=== PATIENT | female | born 1960 | race Caucasian/White ===

== ENCOUNTER → 2017-03-03 | Outpatient (REF) | payer OTHER | LOC: M SFHCPLAZ 11:35 | PROVIDERS: ATTEND Nurse Practitioner Adult Health | DX: Z00.00 Encounter for general adult medical examination without abnormal findings (principal); E55.9 Vitamin D deficiency, unspecified; Z53.9 Procedure and treatment not carried out, unspecified reason ==

== ENCOUNTER 2017-07-15 09:27 | Outpatient (CLI) | payer BC, OTHER ==
[~2017-07-15] VITALS: Ht 152.4 cm; Wt 65.8 kg
[~2017-07-15 09:27] MED LIST: HYDR200T3 PO; IBUP-1022 PO; PREM0.3T2 PO; VITA100054 PO; VITA500T PO
[2017-07-15] MEDS ORDERED: NS 1,000 ML IV SCH (09:45)
[2017-07-15] MEDS ORDERED: LIDOCAINE 2% INJ 100 MG/5 ML SDV (FOR ANES.) As Ordered ONE (10:28)
[2017-07-15] MEDS ORDERED: PROPOFOL 200 MG/20 ML VIAL As Ordered ONE ×2 (10:28→10:43)
--- NOTE | 2017-07-15 10:49 | ROOR ---
Patient Name: Jens Benedict Procedure Date: 07/15/2017 10:24 AM Date of : 1960 Age: 57 Room: [facility] Gender: Female Note Status: Finalized Procedure: Total Colonoscopy to cecum + Biopsy Polypectomy Indications: Screening for colorectal malignant neoplasm, Last colonoscopy: 2006 Providers: Micky Russell MD Referring MD: Nathan Herron MD Requesting Provider: Medicines: Monitored Anesthesia Care Complications: No immediate complications. Procedure: Pre-Anesthesia Assessment: - The heart rate, respiratory rate, oxygen saturations, blood pressure, adequacy of pulmonary ventilation, and response to care were monitored throughout the procedure. The Colonoscope was introduced through the anus and advanced to the cecum, identified by appendiceal orifice and ileocecal valve. The colonoscopy was performed without difficulty. The patient tolerated the procedure well. The quality of the bowel preparation was excellent. Findings: The perianal and digital rectal examinations were normal. Non-bleeding internal hemorrhoids were found during retroflexion. The hemorrhoids were small and Grade I (internal hemorrhoids that do not prolapse). A diminutive polyp was found at 25 cm proximal to the anus. The polyp was sessile. The polyp was removed with a jumbo cold forceps. Resection and retrieval were complete. The exam was otherwise without abnormality on direct and retroflexion views. Impression: - Non-bleeding internal hemorrhoids. - One diminutive polyp at 25 cm proximal to the anus, removed with a jumbo cold forceps. Resected and retrieved. - The examination was otherwise normal on direct and retroflexion views. - The exam was otherwise normal to the cecum. Recommendation: - Patient has a contact number available for emergencies. The signs and symptoms of potential delayed complications were discussed with the patient. Return to normal activities tomorrow. Written discharge instructions were provided to the patient. - High fiber diet. - Discharge patient to home. - Continue present medications. - Await pathology results. - Telephone GI clinic for pathology results in 1 week. - Repeat colonoscopy in 10 years for surveillance based on pathology results. - Return to referring physician. - The findings and recommendations were discussed with the patient's family. Micky Russell MD Micky Russell MD 07/15/2017 10:49:39 AM This report has been signed electronically. Number of Addenda: 0 Note Initiated On: 07/15/2017 10:24 AM Estimated Blood Loss: Estimated blood loss: none.
[2017-07-15 11:05] VITALS: BP 141/68
== END 2017-07-15 11:19 | disposition home or self-care (01) ==
LOC: M OPP 09:27
PROVIDERS: ATTEND Internal Medicine Gastroenterology
DX: Z12.11 Encounter for screening for malignant neoplasm of colon (principal); D12.5 Benign neoplasm of sigmoid colon; K64.0 First degree hemorrhoids; M19.90 Unspecified osteoarthritis, unspecified site; G43.909 Migraine, unspecified, not intractable, without status migrainosus; Z78.0 Asymptomatic menopausal state; Z88.1 Allergy status to other antibiotic agents; Z88.0 Allergy status to penicillin; Z79.899 Other long term (current) drug therapy; Z80.49 Family history of malignant neoplasm of other genital organs

== ENCOUNTER → 2019-04-19 | Outpatient (REF) | payer OTHER ==
[2019-04-19 16:22] LABS: ALBUMIN 4.1 GM/DL (3.2-5.2); BILIRUBIN,TOTAL 0.7 MG/DL (0.2-1.0); CALCIUM LEVEL 10.1 MG/DL (8.8-10.2); CHOLESTEROL RISK RATIO 3.25 (<5); CREATININE FOR GFR 1.34 MG/DL (0.55-1.30); GLOMERULAR FILTRATION RATE 42.8 (>45); MAGNESIUM LEVEL 2.3 MG/DL (1.8-2.4); POTASSIUM SERUM 4.5 MEQ/L (3.5-5.1); TOTAL PROTEIN 7.2 GM/DL (6.4-8.2)
== END ==
LOC: M SFHCPLAZ 14:29
PROVIDERS: ATTEND Internal Medicine
DX: I10 Essential (primary) hypertension (principal); E78.00 Pure hypercholesterolemia, unspecified

== ENCOUNTER → 2019-05-17 | Outpatient (CLI) | payer BC, OTHER ==
--- NOTE | 2019-05-17 15:49 | REPMRS ---
Patient History The patient states she has not had a clinical breast exam in over a year. Patient is postmenopausal and is nulliparous. Family history of unknown cancer at age 70 in father, unknown cancer at age 30 in maternal aunt, unknown cancer at age 70 in paternal aunt. Benign stereotactic core biopsy of the right breast, December 25, 2015. Benign core biopsy of both breasts. Took hormonal contraceptives for 6 years. Took unspecified hormones for 2 years. 3D TOMOSYNTHESIS WAS PERFORMED. [facility] lifetime risk for breast cancer is 11.1%. Digital Woman Screen Mammo: May 17, 2019 - Exam #: [id number] Bilateral CC and MLO view(s) were taken. Technologist: Filomena Loredo, Technologist Prior study comparison: March 17, 2018, bilateral digital mammo screening bilat, performed at [facility]. May 28, 2016, right breast digital mammo diagnostic unilateral, performed at [facility]. FINDINGS: The breast tissue is heterogeneously dense. This may lower the sensitivity of mammography. There has been no change in the appearance of the mammogram from the prior studies. There is a moderate amount of residual fibroglandular tissue which is fairly symmetric. There is no interval development of dominant mass, areas of architectural distortion, or clustered microcalcification typical of malignancy. Assessment: BI-RADS/ACR category 1 mammogram. Negative Mammogram. Recommendation Routine screening mammogram in 1 year (for women over age 40). This mammogram was interpreted with the aid of an FDA-approved computer-aided dectection system. Electronically Signed By: Ac Fraga MD 05/17/19 3024
--- NOTE | 2019-05-19 14:21 | DEXA ---
AP SPINE L1 - L4 1.239 0.4 1.7 LT FEMUR TOTAL 0.981 -0.2 0.8 LT NECK 0.981 -0.2 0.8 RT FEMUR TOTAL 0.897 -1.0 0.3 RT NECK Right hip replacement. TOTAL BODY TOTAL OTHER COMMENTS: Normal bone densitometry of the spine. There is low bone density of the left hip. The density of the spine has increased 3.2% since 08/14/2010. The density of the left hip has decreased 3.3% since 08/14/2010. The density of the right hip is N/A. The increased density of the spine does represent a significant change. The decreased density of the left hip does represent a significant change. FOLLOW-UP: Recommendation for the next bone density exam: 2 years. MARIA ESTHER
== END ==
LOC: M WHC 12:56
PROVIDERS: ATTEND Nurse Practitioner Women's Health
DX: Z12.31 Encounter for screening mammogram for malignant neoplasm of breast (principal); N95.1 Menopausal and female climacteric states; Z80.9 Family history of malignant neoplasm, unspecified; Z92.0 Personal history of contraception; Z92.23 Personal history of estrogen therapy

== ENCOUNTER 2019-05-29 10:44 | Emergency (ER) | payer BC, OTHER ==
[~2019-05-29] VITALS: Ht 152.4 cm; Wt 75.8 kg
[2019-05-29] MEDS ORDERED: ASPI81TA85 PO (10:57)
[2019-05-29] MEDS ORDERED: CELE20TA PO (10:57)
[2019-05-29] MEDS ORDERED: LISI10TA15 PO (10:57)
[2019-05-29] MEDS ORDERED: SULF500T2 PO (10:57)
[2019-05-29] MEDS ORDERED: RA T500C2 PO (10:57)
[2019-05-29] MEDS ORDERED: OMEGCAP9 PO (10:57)
[2019-05-29] MEDS ORDERED: NS 1,000 ML IV ONE (11:45)
[2019-05-29] MEDS ORDERED: ONDANSETRON 4MG/2ML VIAL (J2405) IV ONE (11:45)
[2019-05-29] MEDS ORDERED: PANTOPRAZOLE 40MG INJ (PROTONIX) (C9113) IV ONE (11:45)
[2019-05-29 12:06] LABS: BASO # 0.1 10^3/uL (0.0-0.2); BASO % 0.5 % (0.0-1.0); EOS # 0.1 10^3/uL (0.0-0.50); EOS % 0.9 % (0.0-3.0); HEMATOCRIT 38.7 % (36.0-47.0); HEMOGLOBIN 12.5 g/dl (12.0-15.5); MEAN CORPUSCULAR HEMOGLOBIN 28.8 pg (27.0-33.0); MEAN CORPUSCULAR HGB CONC 32.3 g/dl (32.0-36.5); MEAN CORPUSCULAR VOLUME 89.2 fl (80.0-96.0); MONO # 0.7 10^3/uL (0.0-0.8); MONO % 6.9 % (0.0-5.0); NEUTROPHILS # 8.1 10^3/uL (1.8-7.7); NEUTROPHILS % 81.1 % (36.0-66.0); PLATELET COUNT, AUTOMATED 305 10^3/uL (150-450); RED BLOOD COUNT 4.34 10^6/uL (4.00-5.40); WHITE BLOOD COUNT 9.9 10^3/uL (4.0-10.0)
[2019-05-29 12:18] LABS: INR 1.03; PARTIAL THROMBOPLASTIN TIME 25.7 SECONDS (25.0-38.4); PROTHROMBIN TIME 13.2 SECONDS (11.8-14.0)
[2019-05-29 12:29] LABS: ALBUMIN 4.1 GM/DL (3.2-5.2); BILIRUBIN,DIRECT 0.2 MG/DL (0.0-0.2); BILIRUBIN,TOTAL 0.6 MG/DL (0.2-1.0); CALCIUM LEVEL 10.3 MG/DL (8.8-10.2); CREATININE FOR GFR 1.33 MG/DL (0.55-1.30); GLOMERULAR FILTRATION RATE 43.2 (>45); POTASSIUM SERUM 4.2 MEQ/L (3.5-5.1); TOTAL PROTEIN 7.4 GM/DL (6.4-8.2)
[2019-05-29] MEDS ORDERED: ISOVUE-370 76% 100ML VIAL (Q9967) As Ordered ONE (12:30)
[2019-05-29] MEDS ORDERED: ACETAMINOPHEN 325 MG TAB PO ONE (13:30)
[2019-05-29] MEDS ORDERED: PROT1TAB2 PO (15:15)
[2019-05-29 16:08] VITALS: BP 131/65
--- NOTE | 2019-05-30 08:43 | REP ---
CT ABDOMEN PELVIS WITH IV CONTRAST ONLY: 05/29/2019. Clinical history: Left lower quadrant pain. History of diverticulosis without diverticulitis. Technique: Bolus of 100 ml Isovue 370 scanning through the abdomen pelvis with coronal and sagittal reconstructions. Refilling with orthopedic metal artifact reduction algorithm performed and portions of the pelvis due to right total hip arthroplasty. Findings CT abdomen. Some minor curvilinear fibrotic changes in the bases but no effusion or acute infiltrate. Heart size not grossly enlarged. No pericardial thickening or effusion. There is no hiatal hernia. Liver not enlarged. There are some hepatic cysts 0.3 cm in the dome of the diaphragm on the right and 2.1 cm inferiorly in the right hepatic lobe. A few other smaller sub-centimeter cysts are seen but no solid mass. No biliary dilatation or perihepatic ascites. Gallbladder shows no calcified stone or mass. Adrenal glands were normal. Pancreas shows no mass, ductal dilatation, inflammatory change. Spleen unremarkable. Small bowel loops without dilatation or air-fluid levels. Abdominal portion of the colon shows collapse of the colon without significant pericolonic inflammatory changes. Some slight wall thickening is noted throughout its entire course. No diverticulosis or definite diverticulitis. No ascites or fluid in the peroneal gutters. Aorta is without aneurysm and no periaortic retroperitoneal lymphadenopathy. Kidneys show rotational along the vertical axis of the kidney to a more horizontal position for the right side. This is anatomic variation. The ureters and collecting systems are without stones. There is no ureteral dilatation. No solid or cystic mass in the kidneys. Lung window review shows no perforation or free air in the abdomen or pelvis. The bone windows show lumbar and lower thoracic spine with only minimal degenerative disc changes at L5-S1 with narrowing and vacuum phenomenon with small osteophytes in the lower and mid thoracic spine. Posterior elements intact. CT pelvis: The bone windows show sacrum, SI joints and iliac bones intact. Left hip, acetabulum and ischia for both sides are normal. Right total hip arthroplasty noted. Appendix is without acute inflammatory process. The distal left colon and sigmoid show no diverticulosis. There collapsed with wall slightly thickened reflect some mild colitis. No pelvic or inguinal adenopathy, inguinal or ventral hernia or other acute finding. Impression: 1. Findings suggest some pancolitis although mild. I do not see ascites, abscess or perforation. No definite diverticulitis. The arthroplasty of the right hip obscures detail in the deep pelvis from spray artifact. The appendix is seen and normal. 2. No renal, ureteral or bladder stone. 3. Solid organs upper abdomen show a few simple hepatic cysts but no calcified gallstones, spleen, adrenal glands, pancreas were unremarkable and the kidneys show no acute finding. Electronically Signed by Rigo Zabala MD 05/30/2019 08:49 A
== END 2019-05-29 16:08 | disposition home or self-care (01) ==
LOC: M ED 10:44
DX: K76.89 Other specified diseases of liver (principal); K51.00 Ulcerative (chronic) pancolitis without complications; R79.89 Other specified abnormal findings of blood chemistry; I10 Essential (primary) hypertension; E78.5 Hyperlipidemia, unspecified; F41.9 Anxiety disorder, unspecified; M06.9 Rheumatoid arthritis, unspecified; K21.9 Gastro-esophageal reflux disease without esophagitis; I44.7 Left bundle-branch block, unspecified; Z79.899 Other long term (current) drug therapy; Z79.82 Long term (current) use of aspirin; Z88.0 Allergy status to penicillin; Z88.1 Allergy status to other antibiotic agents; Z88.5 Allergy status to narcotic agent; Z88.8 Allergy status to other drugs, medicaments and biological substances; Z87.891 Personal history of nicotine dependence
CPT/HCPCS: 36415; 74177; 80048; 80076; 81001; 83690; 85025; 85610; 85730; 87507; 96361; 96374; 96375; 99284; C9113; J2405; Q9967

== ENCOUNTER → 2020-05-21 | Outpatient (CLI) | payer BC ==
[~2020-05-21] MED LIST changes: +ASPI81TA86 PO; +BUSP5TA PO; +CELE20TA PO; +CLIN-30 PO; +Holter; +LISI10TA15 PO; +OMEGCAP9 PO; +PROT1TAB2 PO; +RA T500C2 PO; +SULF500T2 PO; +VITA-243 PO; -VITA500T PO
--- NOTE | 2020-06-07 10:39 | REPMRS ---
Patient History The patient states she has not had a clinical breast exam in over a year. Patient is postmenopausal and is nulliparous. Family history of unknown cancer at age 70 in father, unknown cancer at age 30 in maternal aunt, endometrial cancer at age 70 in paternal aunt. Benign stereotactic core biopsy of the right breast, December 25, 2015. Benign core biopsy of both breasts. Took hormonal contraceptives for 6 years. Took unspecified hormones for 2 years. Digital Woman Screen Mammo: May 21, 2020 - Exam #: [id number] Bilateral CC and MLO view(s) were taken. Technologist: Filomena Loredo, Technologist Prior study comparison: May 17, 2019, bilateral digital woman screen mammo performed at [facility]. March 17, 2018, bilateral digital mammo screening bilat, performed at [facility]. FINDINGS: There are scattered fibroglandular densities. The Volpara volumetric breast density category is:B. There are needle biopsy marker clips in both breasts. There has been no change in the appearance of the mammogram from the prior studies. There is a mild amount of scattered fibroglandular density which is fairly symmetric. There is no interval development of dominant mass, architectural distortion, or grouped microcalcification suggestive of malignancy. 3-D tomosynthesis shows no additional findings. Assessment: BI-RADS/ACR category 2 mammogram. Benign Findings. Recommendation Routine screening mammogram of both breasts in 1 year (for women over age 40). This patient's Lifetime Breast Cancer Risk is estimated at 10.8 %. This mammogram was interpreted with the aid of an FDA-approved computer-aided dectection system. Electronically Signed By: Dar Bailey MD 06/07/20 1038
== END ==
LOC: M WHC 06:27
PROVIDERS: ATTEND Internal Medicine
DX: Z12.31 Encounter for screening mammogram for malignant neoplasm of breast (principal)

== ENCOUNTER 2020-08-09 19:52 | Emergency (ER) | payer BC, OTHER ==
[~2020-08-09] VITALS: Ht 147.3 cm; Wt 77.9 kg
[~2020-08-09 19:52] MED LIST changes: -BUSP5TA PO; -CLIN-30 PO; -Holter
[2020-08-09] MEDS ORDERED: CLIN-30 PO (20:07)
[2020-08-09] MEDS ORDERED: HYDR200T3 PO (20:07)
[2020-08-09] MEDS ORDERED: BUSP5TA PO (20:07)
[2020-08-09 20:46] LABS: BASO # 0.1 10^3/uL (0.0-0.2); BASO % 0.6 % (0.0-1.0); EOS # 0.1 10^3/uL (0.0-0.5); EOS % 1.2 % (0.0-3.0); HEMATOCRIT 40.5 % (36.0-47.0); HEMOGLOBIN 12.9 g/dl (12.0-15.5); LYMPH # 1.3 10^3/uL (1.5-5.0); LYMPH % 16.4 % (24.0-44.0); MEAN CORPUSCULAR HEMOGLOBIN 27.4 pg (27.0-33.0); MEAN CORPUSCULAR HGB CONC 31.9 g/dl (32.0-36.5); MEAN CORPUSCULAR VOLUME 86.2 fl (80.0-96.0); MONO # 0.7 10^3/uL (0.0-0.8); MONO % 9.1 % (0.0-5.0); NEUTROPHILS # 5.6 10^3/uL (1.5-8.5); NEUTROPHILS % 72.2 % (36.0-66.0); PLATELET COUNT, AUTOMATED 294 10^3/uL (150-450); WHITE BLOOD COUNT 7.8 10^3/uL (4.0-10.0)
[2020-08-09 20:55] LABS: INR 0.89; PROTHROMBIN TIME 12.2 SECONDS (12.5-14.3)
[2020-08-09 20:56] LABS: PARTIAL THROMBOPLASTIN TIME 23.6 SECONDS (24.2-38.5)
[2020-08-09 21:10] LABS: ALBUMIN 3.8 GM/DL (3.2-5.2); BILIRUBIN,DIRECT 0.1 MG/DL (0.0-0.2); BILIRUBIN,TOTAL 0.6 MG/DL (0.2-1.0); MAGNESIUM LEVEL 2.1 MG/DL (1.8-2.4); THYROID STIMULATING HORMONE 0.575 uIU/ML (0.358-3.740); TOTAL PROTEIN 6.9 GM/DL (6.4-8.2)
--- NOTE | 2020-08-09 21:43 | REPVR ---
PROCEDURE INFORMATION: Exam: XR Chest, 1 View Exam date and time: 08/09/2020 9:20 PM Age: 60 years old Clinical indication: Other: Palpitations TECHNIQUE: Imaging protocol: XR of the chest Views: 1 view. COMPARISON: CT Chest without contrast 04/17/2016 10:58 AM FINDINGS: Lungs: Mild lateral left base linear atelectasis or scar. Pleural space: Unremarkable. No pleural effusion. No pneumothorax. Heart/Mediastinum: Unremarkable. No cardiomegaly. Bones/joints: Unremarkable. IMPRESSION: 1. Mild lateral left base linear atelectasis or scar. 2. Otherwise negative chest. Electronically signed by: Guanako Ng On 08/09/2020 21:43:03 PM
[2020-08-09] MEDS ORDERED: ISOVUE-370 76% 100ML VIAL As Ordered ONE (22:04)
--- NOTE | 2020-08-09 22:32 | REPVR ---
PROCEDURE INFORMATION: Exam: CT Angiography Chest With Contrast Exam date and time: 08/09/2020 10:17 PM Age: 60 years old Clinical indication: Other: Palpitations; Additional info: Effusion, palpitations, R/O pe TECHNIQUE: Imaging protocol: Computed tomographic angiography of the chest with intravenous contrast. 3D rendering (Not supervised by radiologist): MIP and/or 3D reconstructed images were created by the technologist. Radiation optimization: All CT scans at this facility use at least one of these dose optimization techniques: automated exposure control; mA and/or kV adjustment per patient size (includes targeted exams where dose is matched to clinical indication); or iterative reconstruction. Contrast material: ISOVUE 370; Contrast volume: 75 ml; Contrast route: INTRAVENOUS (IV); COMPARISON: CT Chest without contrast 04/17/2016 10:58 AM FINDINGS: Pulmonary arteries: The main pulmonary artery measures 29 mm. No pulmonary embolism is identified. Aorta: The ascending thoracic aorta measures 26 mm. Lungs: Mild bibasilar fibro-atelectatic change, greatest in the lower lobes. Pleural space: Unremarkable. No pneumothorax. No pleural effusion. Heart: Unremarkable. No cardiomegaly. No pericardial effusion. Lymph nodes: Unremarkable. No enlarged lymph nodes. Liver: There are a few hepatic cysts measuring up to 2.7 cm in the anterior dome with a Hounsfield measurement of 4. Bones/joints: Mild kyphosis of the thoracic spine with mild degenerative spurring. Soft tissues: Unremarkable. IMPRESSION: 1. Mild bibasilar fibro-atelectatic change, greatest in the lower lobes, increased since 04/17/2016. 2. Otherwise negative CTA chest. No pulmonary embolism is identified. Electronically signed by: Guanako Ng On 08/09/2020 22:31:58 PM
[2020-08-09] MEDS ORDERED: Holter (22:54)
[2020-08-10 00:30] VITALS: BP 142/67
--- NOTE | 2020-08-10 07:29 | ECGEPIP ---
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
--- NOTE | 2020-08-10 07:31 | ECGEPIP ---
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
== END 2020-08-10 00:50 | disposition home or self-care (01) ==
LOC: M ED 19:52
DX: R00.2 Palpitations (principal); I10 Essential (primary) hypertension; F34.1 Dysthymic disorder; I44.7 Left bundle-branch block, unspecified; M06.9 Rheumatoid arthritis, unspecified; E78.00 Pure hypercholesterolemia, unspecified; F17.210 Nicotine dependence, cigarettes, uncomplicated; Z88.0 Allergy status to penicillin; Z88.5 Allergy status to narcotic agent; Z88.1 Allergy status to other antibiotic agents; Z88.8 Allergy status to other drugs, medicaments and biological substances; Z79.899 Other long term (current) drug therapy; Z79.2 Long term (current) use of antibiotics
CPT/HCPCS: 36415; 71045; 71275; 80047; 80076; 83735; 83880; 84443; 84484; 85025; 85610; 85730; 93005; 99285; Q9967

== ENCOUNTER → 2020-10-31 | Outpatient (REF) | payer OTHER ==
[~2020-10-31] MED LIST changes: +BUSP5TA PO; +CLIN-30 PO; +Holter
[2020-10-31 11:21] LABS: ALBUMIN 3.8 GM/DL (3.2-5.2); BILIRUBIN,TOTAL 0.7 MG/DL (0.2-1.0); CREATININE FOR GFR 1.5 MG/DL (0.55-1.30); GLOMERULAR FILTRATION RATE 37.5 (>45); MAGNESIUM LEVEL 2.1 MG/DL (1.8-2.4); POTASSIUM SERUM 4.1 MEQ/L (3.5-5.1); THYROID STIMULATING HORMONE 0.681 uIU/ML (0.358-3.740); TOTAL PROTEIN 6.6 GM/DL (6.4-8.2)
== END ==
LOC: M PLALAB 09:09
PROVIDERS: ATTEND Internal Medicine
DX: I10 Essential (primary) hypertension (principal); F34.1 Dysthymic disorder

== ENCOUNTER → 2020-11-20 | Outpatient (CLI) | payer BC, OTHER ==
[~2020-11-20] MED LIST changes: +PROHANCE 279.3MG/ML 15ML VIAL As Ordered ONE
--- NOTE | 2020-11-20 16:47 | REP ---
INDICATION: NEOPLASM OF UNCERTAIN BEHAVIOR OF CONNCTV/SOFT TISSUE. Right-side mass. COMPARISON: Comparison chest CT study August 09, 2020.. TECHNIQUE: MR markers are affixed to the skin above and below the lump. Sagittal axial and coronal imaging planes are included. T1 and T2 weighted scans are acquired with without fat saturation. Post gadolinium enhanced imaging is acquired. The gadolinium enhancement dose is 7 mL of intravenous ProHance. FINDINGS: The MR marker is affixed to the skin at the site of the palpable lump the noted area in the subclavicular soft tissues on the right. There is nothing but normal homogeneous subcutaneous fat in this region on MR imaging. The pectoralis minor and major muscles are normal in course contour and size. No axillary or chest wall mass lesion is seen. No evidence of adenopathy. Postcontrast imaging shows no significant contrast enhancement. There is no evidence of brachial plexus lesion. IMPRESSION: No mass lesion is visible. No evidence of encapsulated lipoma. Only homogeneous subcutaneous fat is seen in the area in question. <Electronically signed by Dar Bailey > 11/20/20 0332
== END ==
LOC: M RAD 12:50
PROVIDERS: ATTEND Obstetrics & Gynecology
DX: D48.1 Neoplasm of uncertain behavior of connective and other soft tissue (principal)
CPT/HCPCS: 71552; A9576

== ENCOUNTER → 2021-07-30 | Outpatient (CLI) | payer BC, OTHER ==
[~2021-07-30] MED LIST changes: -PROHANCE 279.3MG/ML 15ML VIAL As Ordered ONE
--- NOTE | 2021-07-30 14:28 | REPMRS ---
Patient History The patient states she had a clinical breast exam in May 2021. Family history of unknown cancer at age 70 in father, unknown cancer at age 30 in maternal aunt, endometrial cancer at age 70 in paternal aunt. Benign stereotactic core biopsy of the right breast, December 25, 2015. Benign core biopsy of both breasts. Took hormonal contraceptives for 6 years. Took unspecified hormones for 2 years. Patient states no breast complaints today. Patient has signed MRS History Sheet. Digital Woman Screen Mammo: July 30, 2021 - Exam #: [id number] Bilateral CC and MLO view(s) were taken. Technologist: Filomena Loredo, Technologist Prior study comparison: May 21, 2020, [facility] May 17, 2019, [facility] FINDINGS: There are scattered fibroglandular densities. Screening. Digital screening (2D) mammography was performed bilaterally in the CC and MLO projections. Additionally, breast tomosynthesis (3D mammography) was performed bilaterally in the CC and MLO projections. Todays exam was compared to the prior exam/exams. By history, the patient has no complaints of a palpable breast abnormality or other significant breast complaints. The breasts are unchanged in size and shape. There are no monet-soft tissue densities or spiculated masses. There is no internal architectural distortion. Once again, stable benign appearing calcifications are seen.There are no suspicious monet-calcific clusters. Skin thickening or nipple retraction is not present. IMPRESSION: BI-RADS Category 2- Benign Findings. There is no evidence of malignant alteration of the breasts. Followup examination recommended in one year. The Volpara volumetric breast density category is B, there are scattered areas of fibroglandular densities. This mammogram was read with the assistance of [employer],an FDA approved computer aided detection system for mammography. The lifetime Tyrer-Cuzick score is 10.3 % Negative x-ray reports should not delay surgical consultation if a dominant or clinically suspicious mass is present. Not all breast cancers can be identified by mammography. Therefore, we recommend that you continue to perform regular breast self-examination and physical examination and then promptly contact your physician of any concerns or changes. Adenosis and dense breasts may obscure an underlying neoplasm. Assessment: BI-RADS/ACR category 2 mammogram. Benign Findings. Recommendation Routine screening mammogram of both breasts in 1 year. Electronically Signed By: Oj Lou DO 07/30/21 1205
== END ==
LOC: M WHC 12:29
PROVIDERS: ATTEND Obstetrics & Gynecology
DX: Z12.31 Encounter for screening mammogram for malignant neoplasm of breast (principal)

== ENCOUNTER → 2021-11-11 | Outpatient (CLI) | payer BC, OTHER ==
[~2021-11-11] MED LIST changes: -LISI10TA15 PO; +LISI10TA24 PO
[2021-11-11 13:20] LABS: ALBUMIN 3.6 GM/DL (3.2-5.2); BILIRUBIN,TOTAL 0.7 MG/DL (0.2-1.0); CALCIUM LEVEL 9.2 MG/DL (8.8-10.2); CHOLESTEROL RISK RATIO 2.783 (<5); CREATININE FOR GFR 1.19 MG/DL (0.55-1.30); GLOMERULAR FILTRATION RATE 48.8 (>45); MAGNESIUM LEVEL 2.1 MG/DL (1.8-2.4); POTASSIUM SERUM 4.3 MEQ/L (3.5-5.1); TOTAL PROTEIN 6.7 GM/DL (6.4-8.2)
== END ==
LOC: M PLALAB 10:23
PROVIDERS: ATTEND Internal Medicine
DX: I10 Essential (primary) hypertension (principal)

== ENCOUNTER → 2022-07-31 | Outpatient (CLI) | payer BC, OTHER | LOC: M WHC 12:00 | PROVIDERS: ATTEND Nurse Practitioner Family | DX: Z12.31 Encounter for screening mammogram for malignant neoplasm of breast (principal) ==

== ENCOUNTER → 2022-10-27 | Outpatient (CLI) | payer BC ==
[2022-10-27 15:15] LABS: HEMATOCRIT 43.8 % (36.0-47.0); HEMOGLOBIN 13.9 g/dl (12.0-15.5); MEAN CORPUSCULAR HEMOGLOBIN 28.6 pg (27.0-33.0); MEAN CORPUSCULAR HGB CONC 31.7 g/dl (32.0-36.5); MEAN CORPUSCULAR VOLUME 90.1 fl (80.0-96.0); PLATELET COUNT, AUTOMATED 261 10^3/uL (150-450); RED BLOOD COUNT 4.86 10^6/uL (4.00-5.40); WHITE BLOOD COUNT 6.3 10^3/uL (4.0-10.0)
[2022-10-27 15:42] LABS: CREATININE, URINE 153.9 MG/DL; MALB URINE SIEMENS < 3.0 MG/DL; MAU/CREAT RATIO 1.9 MCG/MG (0.0-30.0)
[2022-10-27 15:45] LABS: C REACTIVE PROTEIN QUANTITATIV < 0.40 MG/DL (<1.0)
[2022-10-27 15:47] LABS: ALBUMIN 3.7 G/DL (3.2-5.2); ALKALINE PHOSPHATASE 75 U/L (46-116); ALT/SGPT 28 U/L (7.0-40); AST/SGOT 31 U/L (<34); BILIRUBIN,TOTAL 0.9 MG/DL (0.3-1.2); BLOOD UREA NITROGEN 21 MG/DL (9-23); CALCIUM LEVEL 9.1 MG/DL (8.3-10.6); CARBON DIOXIDE LEVEL 29 MMOL/L (20-31); CHLORIDE LEVEL 107 MMOL/L (98-107); CHOLESTEROL LEVEL 197 MG/DL (<200); CHOLESTEROL RISK RATIO 2.68 (<5); CREATININE FOR GFR 1.27 MG/DL (0.55-1.30); GLOMERULAR FILTRATION RATE 45.1 (>45); GLUCOSE, FASTING 97 MG/DL (74-106); HDL CHOLESTEROL 73.3 MG/DL (>40); LDL CHOLESTEROL 105.3 MG/DL (<100); NON-HDL-C 124 MG/DL; POTASSIUM SERUM 4.6 MMOL/L (3.5-5.1); SODIUM LEVEL 140 MMOL/L (136-145); TOTAL PROTEIN 6.5 G/DL (5.7-8.2); TRIGLYCERIDES LEVEL 92 MG/DL (<150)
[2022-10-27 15:48] LABS: FREE T4 1.21 NG/DL (0.89-1.76); THYROID STIMULATING HORMONE 0.642 uIU/ML (0.55-4.78); VITAMIN B12 LEVEL 355 PG/ML (211-911)
[2022-10-27 15:49] LABS: TOTAL 25(OH) VITAMIN D 43.5 NG/ML (20.0-100.0)
[2022-10-27 17:12] LABS: HEMOGLOBIN A1c 5.2 % (4.0-6.0)
== END ==
LOC: M PLALAB 13:55
PROVIDERS: ATTEND Internal Medicine Hematology
DX: E78.00 Pure hypercholesterolemia, unspecified (principal)

== ENCOUNTER → 2023-08-03 | Outpatient (CLI) | payer MEDICARE ==
[~2023-08-03] MED LIST changes: -HYDR200T3 PO; +HYDR200T46 PO
== END ==
LOC: M WHC 11:29
PROVIDERS: ATTEND Internal Medicine Hematology
DX: Z12.31 Encounter for screening mammogram for malignant neoplasm of breast (principal)

== ENCOUNTER → 2023-08-19 | Outpatient (CLI) | payer MEDICARE | LOC: M WHC 11:25 | PROVIDERS: ATTEND Nurse Practitioner Family | DX: Z12.31 Encounter for screening mammogram for malignant neoplasm of breast (principal) ==

== ENCOUNTER → 2023-08-19 | Outpatient (REF) | payer MEDICARE | LOC: M SFHCWAGY 17:43 | PROVIDERS: ATTEND Nurse Practitioner Family | DX: Z12.4 Encounter for screening for malignant neoplasm of cervix (principal); N95.8 Other specified menopausal and perimenopausal disorders | CPT/HCPCS: 87624; G0123 ==

== ENCOUNTER 2023-12-30 06:40 | Day surgery (SDC) | payer MEDICARE ==
[~2023-12-30] VITALS: Ht 152.4 cm; Wt 76.5 kg
[~2023-12-30 06:40] MED LIST changes: +FOLI1TAB11 PO; +METH2.5T48 PO; +VITA100093 PO
[2023-12-30] MEDS: NS 1,000 ML IV ONE (07:05)
[2023-12-30] MEDS ORDERED: propofoL 200 MG/20 ML VIAL As Ordered ONE (07:15)
[2023-12-30 08:22] VITALS: BP 141/65; TEMP 97.5; O2SAT 96
== END 2023-12-30 08:24 | disposition home or self-care (01) ==
LOC: M OPP 06:40
PROVIDERS: ATTEND Internal Medicine Gastroenterology
DX: Z12.11 Encounter for screening for malignant neoplasm of colon (principal); Z86.010 Personal history of colon polyps; K64.0 First degree hemorrhoids; Z87.891 Personal history of nicotine dependence; Z79.1 Long term (current) use of non-steroidal anti-inflammatories (NSAID); Z79.631 Long term (current) use of antimetabolite agent; Z79.899 Other long term (current) drug therapy; Z88.0 Allergy status to penicillin; Z88.1 Allergy status to other antibiotic agents; Z88.5 Allergy status to narcotic agent; Z88.8 Allergy status to other drugs, medicaments and biological substances

== ENCOUNTER 2024-04-06 12:35 | Emergency (ER) | payer MEDICARE ==
[~2024-04-06] VITALS: Ht 152.4 cm; Wt 76.0 kg
[2024-04-06] MEDS ORDERED: ATEN25TA PO (12:55)
[2024-04-06] MEDS ORDERED: META0.52 PO (12:55)
[2024-04-06 15:00] VITALS: TEMP 98.5
[2024-04-06 15:18] LABS: BASO % 0.4 % (0.0-1.0); EOS # 0.1 10^3/uL (0.0-0.5); EOS % 1.6 % (0.0-3.0); HEMATOCRIT 39.1 % (36.0-47.0); HEMOGLOBIN 12.9 g/dl (12.0-15.5); LYMPH # 0.9 10^3/uL (1.5-5.0); LYMPH % 12.4 % (24.0-44.0); MONO # 0.4 10^3/uL (0.0-0.8); MONO % 5.3 % (2.0-8.0); NEUTROPHILS # 6.1 10^3/uL (1.5-8.5); PLATELET COUNT, AUTOMATED 239 10^3/uL (150-450); RED BLOOD COUNT 4.16 10^6/uL (4.00-5.40); WHITE BLOOD COUNT 7.6 10^3/uL (4.0-10.0)
[2024-04-06 15:26] LABS: CALCIUM LEVEL 9.3 MG/DL (8.3-10.6); CREATININE FOR GFR 1.38 MG/DL (0.55-1.30); GLOMERULAR FILTRATION RATE 40.7 (>45); MAGNESIUM LEVEL 2.2 MG/DL (1.8-2.4); POTASSIUM SERUM 5.2 MMOL/L (3.5-5.1)
[2024-04-06 15:29] LABS: FREE T4 1.06 NG/DL (0.89-1.76); THYROID STIMULATING HORMONE 0.634 uIU/ML (0.55-4.78)
[2024-04-06] MEDS: NS 500 ML IV ONE (15:56)
[2024-04-06] MEDS: LORazepam 0.5 MG TAB PO STA (16:08)
[2024-04-06 17:01] VITALS: BP 152/69; O2SAT 99
== END 2024-04-06 17:35 | disposition home or self-care (01) ==
LOC: M ED 12:35
DX: R00.2 Palpitations (principal); R00.1 Bradycardia, unspecified; I44.7 Left bundle-branch block, unspecified; I10 Essential (primary) hypertension; K57.30 Diverticulosis of large intestine without perforation or abscess without bleeding; F10.10 Alcohol abuse, uncomplicated; Z87.891 Personal history of nicotine dependence; Z88.0 Allergy status to penicillin; Z88.5 Allergy status to narcotic agent; Z88.8 Allergy status to other drugs, medicaments and biological substances; Z79.1 Long term (current) use of non-steroidal anti-inflammatories (NSAID); Z79.899 Other long term (current) drug therapy

== ENCOUNTER → 2024-07-11 | Outpatient (CLI) | payer MEDICARE ==
[~2024-07-11] MED LIST changes: +ATEN25TA PO; +META0.52 PO
== END ==
LOC: M PLAIMG 13:49
PROVIDERS: ATTEND Registered Nurse
DX: I27.20 Pulmonary hypertension, unspecified (principal); I08.3 Combined rheumatic disorders of mitral, aortic and tricuspid valves

== ENCOUNTER → 2024-08-23 | Outpatient (REF) | payer MEDICARE ==
[2024-08-25 15:17] LABS: HPV APTIMA Not Detected (Not Detected)
== END ==
LOC: M SFHCWAGY 17:55
PROVIDERS: ATTEND Nurse Practitioner Family
DX: Z12.4 Encounter for screening for malignant neoplasm of cervix (principal); N95.2 Postmenopausal atrophic vaginitis
CPT/HCPCS: 87624; G0123

== ENCOUNTER → 2024-08-23 | Outpatient (CLI) | payer MEDICARE | LOC: M WHC 13:02 | PROVIDERS: ATTEND Nurse Practitioner Family | DX: Z12.31 Encounter for screening mammogram for malignant neoplasm of breast (principal); R92.323 Mammographic fibroglandular density, bilateral breasts ==

== ENCOUNTER → 2024-10-18 | Outpatient (CLI) | payer MEDICARE ==
[2024-10-18 16:46] LABS: HEMOGLOBIN A1c 5.3 % (4.0-6.0)
[2024-10-18 16:54] LABS: BASO % 0.5 % (0.0-1.0); HEMATOCRIT 40.8 % (36.0-47.0); HEMOGLOBIN 13.2 g/dl (12.0-15.5); LYMPH # 0.9 10^3/uL (1.5-5.0); LYMPH % 13.8 % (24.0-44.0); MEAN CORPUSCULAR HEMOGLOBIN 31.2 pg (27.0-33.0); MEAN CORPUSCULAR HGB CONC 32.4 g/dl (32.0-36.5); MEAN CORPUSCULAR VOLUME 96.5 fl (80.0-96.0); MONO # 0.5 10^3/uL (0.0-0.8); MONO % 7.5 % (2.0-8.0); NEUTROPHILS # 5.1 10^3/uL (1.5-8.5); NEUTROPHILS % 77.7 % (36.0-66.0); PLATELET COUNT, AUTOMATED 259 10^3/uL (150-450); RED BLOOD COUNT 4.23 10^6/uL (4.00-5.40); WHITE BLOOD COUNT 6.5 10^3/uL (4.0-10.0)
[2024-10-18 17:04] LABS: CREATININE, URINE 103.1 MG/DL; MALB URINE SIEMENS < 3.0 MG/L
[2024-10-18 17:05] LABS: THYROID STIMULATING HORMONE 0.613 uIU/ML (0.55-4.78); VITAMIN B12 LEVEL 384 PG/ML (211-911)
[2024-10-18 17:06] LABS: ALBUMIN 3.8 G/DL (3.2-5.2); ALKALINE PHOSPHATASE 78 U/L (35-104); ALT/SGPT 34 U/L (7.0-40); AST/SGOT 34 U/L (<34); BILIRUBIN,TOTAL 1.2 MG/DL (0.3-1.2); BLOOD UREA NITROGEN 30 MG/DL (9-23); C REACTIVE PROTEIN QUANTITATIV < 0.50 MG/DL (<1.0); CALCIUM LEVEL 9.7 MG/DL (8.3-10.6); CARBON DIOXIDE LEVEL 30 MMOL/L (20-31); CHLORIDE LEVEL 108 MMOL/L (98-107); CHOLESTEROL LEVEL 222 MG/DL (<200); CHOLESTEROL RISK RATIO 3.25 (<5); CREATININE FOR GFR 1.43 MG/DL (0.55-1.30); GLOMERULAR FILTRATION RATE 39.1 (>45); GLUCOSE, FASTING 85 MG/DL (74-106); HDL CHOLESTEROL 68.3 MG/DL (>40); LDL CHOLESTEROL 135.9 MG/DL (<100); NON-HDL-C 153.7 MG/DL; POTASSIUM SERUM 5.3 MMOL/L (3.5-5.1); SODIUM LEVEL 143 MMOL/L (136-145); TOTAL PROTEIN 6.4 G/DL (5.7-8.2); TRIGLYCERIDES LEVEL 89 MG/DL (<150)
[2024-10-18 17:07] LABS: FREE T4 1.17 NG/DL (0.89-1.76)
== END ==
LOC: M PLALAB 12:07
PROVIDERS: ATTEND Internal Medicine Hematology
DX: I10 Essential (primary) hypertension (principal)

== ENCOUNTER → 2024-12-14 | Outpatient (CLI) | payer MEDICARE ==
[2024-12-14 10:44] LABS: ALBUMIN 3.5 G/DL (3.2-5.2); BILIRUBIN,TOTAL 0.7 MG/DL (0.3-1.2); CALCIUM LEVEL 9.4 MG/DL (8.3-10.6); CHOLESTEROL RISK RATIO 3.01 (<5); CREATININE FOR GFR 1.43 MG/DL (0.55-1.30); GLOMERULAR FILTRATION RATE 39.1 (>45); HDL CHOLESTEROL 57.8 MG/DL (>40); LDL CHOLESTEROL 101.2 MG/DL (<100); NON-HDL-C 116.2 MG/DL; POTASSIUM SERUM 5.4 MMOL/L (3.5-5.1); TOTAL PROTEIN 6.2 G/DL (5.7-8.2)
== END ==
LOC: M PLALAB 09:09
PROVIDERS: ATTEND Student in an Organized Health Care Education/Training Program
DX: N17.9 Acute kidney failure, unspecified (principal)

== ENCOUNTER → 2024-12-30 | Outpatient (CLI) | payer MEDICARE | LOC: M RAD 10:52 | PROVIDERS: ATTEND Student in an Organized Health Care Education/Training Program | DX: N28.9 Disorder of kidney and ureter, unspecified (principal); N20.0 Calculus of kidney ==

== ENCOUNTER → 2025-01-24 | Outpatient (CLI) | payer MEDICARE | LOC: M PLAIMG 11:53 | PROVIDERS: ATTEND Physician Assistant Medical | DX: J18.8 Other pneumonia, unspecified organism (principal); R05.1 Acute cough ==

== ENCOUNTER → 2025-01-24 | Outpatient (REF) | payer MEDICARE ==
[2025-01-24 15:34] LABS: BASO % 0.4 % (0.0-1.0); EOS # 0.1 10^3/uL (0.0-0.5); HEMATOCRIT 40.4 % (36.0-47.0); HEMOGLOBIN 13.2 g/dl (12.0-15.5); LYMPH # 0.7 10^3/uL (1.5-5.0); LYMPH % 14.3 % (24.0-44.0); MEAN CORPUSCULAR HEMOGLOBIN 30.6 pg (27.0-33.0); MEAN CORPUSCULAR HGB CONC 32.7 g/dl (32.0-36.5); MEAN CORPUSCULAR VOLUME 93.5 fl (80.0-96.0); MONO # 0.4 10^3/uL (0.0-0.8); MONO % 8.5 % (2.0-8.0); NEUTROPHILS # 3.9 10^3/uL (1.5-8.5); NEUTROPHILS % 75.4 % (36.0-66.0); PLATELET COUNT, AUTOMATED 269 10^3/uL (150-450); RED BLOOD COUNT 4.32 10^6/uL (4.00-5.40); WHITE BLOOD COUNT 5.2 10^3/uL (4.0-10.0)
[2025-01-24 15:39] LABS: ALBUMIN 3.7 G/DL (3.2-5.2); BILIRUBIN,TOTAL 0.7 MG/DL (0.3-1.2); C REACTIVE PROTEIN QUANTITATIV 3.33 MG/DL (<1.0); CREATININE FOR GFR 1.14 MG/DL (0.55-1.30); GLOMERULAR FILTRATION RATE 52.8 (>45); POTASSIUM SERUM 4.9 MMOL/L (3.5-5.1); TOTAL PROTEIN 6.6 G/DL (5.7-8.2)
[2025-01-24 15:40] LABS: ERYTHROCYTE SEDIMENTATION RATE 46 mm/hr (0-30)
== END ==
LOC: M SFHCPLAZ 11:24
PROVIDERS: ATTEND Physician Assistant Medical
DX: R05.1 Acute cough (principal); M06.9 Rheumatoid arthritis, unspecified
CPT/HCPCS: 71046; 80053; 85025; 85652; 86140; 87486; 87581; 87633; 87798; G0463

== ENCOUNTER → 2025-09-12 | Outpatient (REF) | payer MEDICARE ==
[~2025-09-12] MED LIST changes: -IBUP-1022 PO; +IBUP600T42 PO; -RA T500C2 PO; +TURM500C10 PO
[2025-09-14 18:27] LABS: HPV APTIMA Not Detected (Not Detected)
== END ==
LOC: M PLALAB 14:53
PROVIDERS: ATTEND Nurse Practitioner Family
DX: Z12.4 Encounter for screening for malignant neoplasm of cervix (principal)
CPT/HCPCS: 87624; G0123

== ENCOUNTER → 2025-09-12 | Outpatient (CLI) | payer MEDICARE | LOC: M WHC 13:47 | PROVIDERS: ATTEND Nurse Practitioner Family | DX: Z12.31 Encounter for screening mammogram for malignant neoplasm of breast (principal); R92.323 Mammographic fibroglandular density, bilateral breasts ==